=== PATIENT | female | born 1960 | race Hispanic/Latino ===

== ENCOUNTER 2021-03-25 14:44 | Emergency (ER) | payer OTHER ==
[~2021-03-25] VITALS: Ht 149.9 cm; Wt 86.2 kg
[2021-03-25 15:50] VITALS: BP 188/75
[2021-03-25 17:32] VITALS: BP 191/83
[2021-03-25 18:28] VITALS: BP 174/65
[2021-03-25] MEDS ORDERED: ORPHENADRINE CITRATE 30 MG/ML ML IM ONE (19:00)
[2021-03-25] MEDS ORDERED: MORPHINE 2 MG SYG IM ONE (19:30)
[2021-03-25] MEDS ORDERED: ONDANSETRON ODT 4MG TAB SL ONE (19:30)
[2021-03-25] MEDS ORDERED: IBUP-2070 PO (19:37)
[2021-03-25] MEDS ORDERED: ACET1TAB25 PO (19:37)
[2021-03-25 20:26] VITALS: BP 168/87
== END 2021-03-25 20:49 | disposition home or self-care (01) ==
LOC: EDH 14:44
DX: S42.291A Other displaced fracture of upper end of right humerus, initial encounter for closed fracture (principal); Z79.899 Other long term (current) drug therapy; V49.49XA Driver injured in collision with other motor vehicles in traffic accident, initial encounter; Y93.89 Activity, other specified; Y92.89 Other specified places as the place of occurrence of the external cause; Y99.8 Other external cause status
CPT/HCPCS: 73060; 96372